=== PATIENT | male | born 1995 | race Caucasian/White ===

== ENCOUNTER 2020-02-27 02:47 | Inpatient (IN) | payer BC ==
[2020-02-27] MEDS ORDERED: Ondansetron ODT 4 MG TAB PO PRN (04:01)
[2020-02-27] MEDS ORDERED: Dextrose 5% in Water 1,000 ML IV PRN (04:01)
[2020-02-27] MEDS ORDERED: Morphine 4 MG/ML VIAL SLOW IVP PRN (04:01)
[2020-02-27] MEDS ORDERED: Morphine 2 MG/ML SYRINGE SLOW IVP PRN (04:01)
[2020-02-27] MEDS ORDERED: Ondansetron PF 4 MG/2 ML Vial IVP PRN (04:01)
[2020-02-27] MEDS ORDERED: Dextrose 50% Abboject 50 ML SYRINGE SLOW IVP PRN (04:01)
[2020-02-27 06:24] VITALS: TEMP 98.6; BMI 23.6
[2020-02-27] MEDS ORDERED: Sodium Chloride 0.9% 1,000 ML IV SCH (07:15)
[2020-02-27 07:47] LABS: #Lymphocytes 1.2 thou/uL (1.20-3.40); #Monocytes 0.7 thou/uL (0.11-0.59); #Neutrophils 9.3 thou/uL (1.40-6.50); %Basophils 0.2 % (0.0-1.0); %Eosinophils 0.1 % (0.0-10.0); %Lymphocytes 10.9 % (21.0-51.0); %Monocytes 6.2 % (0.0-10.0); %Neutrophils 82.6 % (42.0-75.0); Hemoglobin 15.1 g/dL (14.0-18.0); Mean Corpuscular HGB CONC 33.5 g/dL (32.0-36.0); Mean Corpuscular Hemoglobin 32.7 pg (27.0-31.0); Mean Corpuscular Volume 97.6 fL (78.0-98.0); Mean Platelet Volume 8.3 fL (7.4-10.4); Platelet Count 269 thou/uL (130-400); RBC Distribution Width 11.8 % (11.5-14.5); Red Blood Cell (RBC) Count 4.62 mill/uL (4.70-6.10); White Blood Cell (WBC) Count 11.3 thou/uL (4.8-10.8)
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
[2020-02-27 08:02] LABS: Lactic Acid 1.9 mmol/L (0.5-2.2)
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
[2020-02-27 08:11] LABS: Anion Gap 13 mmol/L (10-20); BUN (Urea Nitrogen) 8 mg/dL (8.9-20.6); Calc. Creatinine Clearance 154 mL/min (70-130); Calcium 8.3 mg/dL (7.8-10.44); Carbon Dioxide 21 mmol/L (22-29); Chloride 112 mmol/L (98-107); Estimated GFR-MDRD Greater than 90; Glucose 94 mg/dL (70-105); Magnesium 2.2 mg/dL (1.6-2.6); Phosphorus 3.5 mg/dL (2.3-4.7); Sodium 142 mmol/L (136-145)
[2020-02-27 08:19] LABS: INR-International Normal Ratio 0.9; Prothrombin Time 12.6 sec (12.0-14.7)
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
[2020-02-27] MEDS ORDERED: Famotidine 20 MG TAB PO SCH (09:00)
[2020-02-27] MEDS ORDERED: Oxazepam 10 MG CAP PO SCH (09:00)
[2020-02-27] MEDS ORDERED: Folic Acid 1 MG TAB PO SCH (09:00)
[2020-02-27] MEDS ORDERED: Thiamine 100 MG TAB PO SCH (09:00)
[2020-02-27] MEDS ORDERED: Multivitamin W/ Minerals 1 TAB PO SCH (09:00)
--- NOTE | 2020-02-27 10:13 | CT ---
Exam: Head CT without contrast HISTORY: Fall intraparenchymal hemorrhage COMPARISON: 02/27/2020 FINDINGS: Hemorrhage: Stable hyperdensity in the left frontal subcortical white matter, measuring 0.4 cm. Stabl e intraparenchymal hematoma. No new areas of intraparenchymal hemorrhage or extra-axial hematoma. Brain parenchyma: Cortical meza-white matter differentiation is preserved. No mass effect or midline shift. Basilar cisterns are patent. Ventricular system: Ventricles and sulci are patent and symmetric. Calvarium: Intact. Sinuses and mastoid air cells: Adequate aeration. IMPRESSION: 1. Stable small intraparenchymal hematoma in the left frontal lobe. 2. No new intracranial hemorrhage.
[2020-02-27] MEDS ORDERED: Acetaminophen 500 MG TAB PO SCH (12:00)
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
[2020-02-27 12:15] VITALS: BP 127/73
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
== END 2020-02-27 13:45 | disposition home or self-care (01) | DRG 84 ==
LOC: ERS 02:47 → SURG A 06:14
PROVIDERS: ADMIT Emergency Medicine; ATTEND Emergency Medicine
PROC: HZ2ZZZZ Detoxification Services for Substance Abuse Treatment (ICD-10-PCS; principal; 2020-02-27)
DX: S06.359A Traumatic hemorrhage of left cerebrum with loss of consciousness of unspecified duration, initial encounter (principal); S06.6X9A Traumatic subarachnoid hemorrhage with loss of consciousness of unspecified duration, initial encounter; S00.81XA Abrasion of other part of head, initial encounter; F10.120 Alcohol abuse with intoxication, uncomplicated; Y90.8 Blood alcohol level of 240 mg/100 ml or more; R40.2412 Glasgow coma scale score 13-15, at arrival to emergency department; Y08.89XA Assault by other specified means, initial encounter
CPT/HCPCS: 36415; 70450; 70486; 72125; 80048; 80307; 83605; 83735; 84100; 85025; 85610; 96360